=== PATIENT | male | born 1970 | race Caucasian/White ===

== ENCOUNTER 2019-10-04 07:58 | Inpatient (IN) | payer MEDICAID ==
[~2019-10-04] VITALS: Ht 170.2 cm; Wt 83.2 kg
--- NOTE | 2019-10-04 08:06 | NUR ---
PT AMBULATED TO THE ROOM W/ A STEADY GAIT.
--- NOTE | 2019-10-04 08:22 | NUR ---
THIS IS A 49 YO M W/ C/O CONSISTENT FEVERS AND PRODUCTIVE COUGH SINCE LAST SATURDAY. PRESCRIBED TAMIFLU, REPORT GI UPSET SO DID NOT TAKE FULL COURSE. RESP EVEN AND UNLABORED. NADN. VS WDL. PT RESTING ON GURNEY W/ CALL LIGHT IN REACH AWAITING ED EVAL. FAMILY AT BEDSIDE.
[2019-10-04] MEDS ORDERED: SODIUM CHLORIDE 0.9% 1,000ML IVBOLUS ONE (09:00)
--- NOTE | 2019-10-04 09:11 | NUR ---
PT TO RAD.
[2019-10-04 09:17] LABS: BASOPHILS # (AUTO) 0.02 x10^3/uL (0-0.1); BASOPHILS % (AUTO) 0 % (0-1); EOSINOPHILS # (AUTO) 0.16 x10^3/uL (0-0.4); EOSINOPHILS % (AUTO) 1 % (1-7); LYMPHOCYTES # (AUTO) 1.52 x10^3/uL (1-3.4); LYMPHOCYTES % (AUTO) 11 % (22-44); MD NO; MEAN CORPUSCULAR HEMOGLOBIN 30.4 pg (27.5-34.5); MEAN CORPUSCULAR HGB CONC 33.7 g/dL (33.2-36.2); MEAN CORPUSCULAR VOLUME 90.4 fL (81-97); MEAN PLATELET VOLUME 6.9 fL (7.4-10.4); MONOCYTES # (AUTO) 1.33 x10^3/uL (0.2-0.8); MONOCYTES % (AUTO) 10 % (2-9); NEUTROPHILS # (AUTO) 10.66 x10^3/uL (1.8-6.8); NEUTROPHILS % (AUTO) 78 % (42-75); PLATELET COUNT 446 x10^3/uL (130-400); RED BLOOD COUNT 4.16 x10^6/uL (4.38-5.82); RED CELL DISTRIBUTION WIDTH 13.7 % (9.4-14.8)
[2019-10-04 09:18] LABS: ALBUMIN 2.4 g/dL (3.4-5.0); ANION GAP 6 mmol/L (5-15); CHLORIDE 104 mmol/L (98-107); CREATININE 0.77 mg/dL (0.7-1.3)
[2019-10-04] MEDS ORDERED: KETOROLAC 30 MG/1 ML IM ONE (09:30)
[2019-10-04] MEDS ORDERED: AZITHROMYCIN 500 MG in SODIUM CHLORIDE 0.9% 250 ML IV ONE (09:30)
[2019-10-04] MEDS ORDERED: CEFTRIAXONE PMX 1GM/50ML 50 ML IV ONE (09:30)
--- NOTE | 2019-10-04 09:31 | NUR ---
22G IV STARTED IN RYAN. UNABLE TO DRAW 2ND SET OF BLOOD CULTURES.
[2019-10-04] MEDS ORDERED: ACET650S21 PO (09:36)
[2019-10-04] MEDS ORDERED: CYAN-10 PO (09:38)
[2019-10-04] MEDS ORDERED: ASCO-254 PO (09:38)
[2019-10-04] MEDS ORDERED: POTASSIUM CHLORIDE 20 MEQ TAB.ER.PRT ONE (09:50)
--- NOTE | 2019-10-04 09:59 | NUR ---
DISCUSSED WITH DR HUNT, PT WITH DIFFICULT VASCULAR ACCESS. PICC TO BE ORDERED. IV ROCEPHIN TO BE STARTED AFTER 2ND SET OF BLOOD CULTURES DRAWN. CORN MILLER AT BEDSIDE. DISCUSSED WITH PT AND PTS FAMILY PICC LINE INSERTION, UNDERSTANDING VERBALIZED.
[2019-10-04] MEDS ORDERED: POTASSIUM CHLORIDE 20 MEQ TAB.ER.PRT PO ONE (10:00)
[2019-10-04] MEDS ORDERED: POTASSIUM CHLORIDE 40 MEQ in SODIUM CHLORIDE 0.9% 500 ML IV ONE (10:00)
[2019-10-04] MEDS ORDERED: MAGNESIUM SULFATE 1 GM/2 ML IVPush ONE (10:00)
--- NOTE | 2019-10-04 10:00 | NUR ---
PRADIP BENTLEY FROM PHARMACY
[2019-10-04] MEDS ORDERED: CEFTRIAXONE PMX 1GM/50ML 50 ML ONE (10:03)
--- NOTE | 2019-10-04 10:39 | NUR ---
PT TO IR.
[2019-10-04] MEDS ORDERED: hydrALAzine 20 MG/ML, 1ML IVPush PRN (12:00)
[2019-10-04] MEDS ORDERED: ONDANSETRON 2MG/ML, 2ML IVPush PRN (12:00)
[2019-10-04] MEDS: NICOTINE 21 MG/24 HR PATCH.TD24 TD SCH (12:00)
[2019-10-04] MEDS: CEFTRIAXONE PMX 1GM/50ML 50 ML IV SCH (12:00)
[2019-10-04] MEDS ORDERED: ACETAMINOPHEN 325 MG TABLET ONE (13:03)
[2019-10-04] MEDS ORDERED: NICOTINE 21 MG/24 HR PATCH.TD24 ONE (13:03)
[2019-10-04] MEDS ORDERED: ENOXAPARIN 40 MG/0.4 ML ONE (13:03)
[2019-10-04] MEDS ORDERED: methylPREDNISolone SOD SUCC 40 MG/ML ONE (13:03)
--- NOTE | 2019-10-04 13:10 | NUR ---
MED [facility] FROM PHARMACY.
[2019-10-04] MEDS: ACETAMINOPHEN 325 MG TABLET PO PRN (13:11)
[2019-10-04] MEDS: ENOXAPARIN 40 MG/0.4 ML SQ SCH (13:12)
[2019-10-04] MEDS: methylPREDNISolone SOD SUCC 40 MG/ML IV SCH (13:14)
--- NOTE | 2019-10-04 13:34 | NUR ---
PT SLEEPING ON GURNEY. CHEST RISE AND FALL OBSERVED. CALL LIGHT IN REACH.
[2019-10-04] MEDS: DOXYCYCLINE 100 MG in DEXTROSE 5% 250 ML IV SCH (13:52)
--- NOTE | 2019-10-04 13:59 | NUR ---
PT MOSTLY SLEEPING, AROUSES TO NAME. SR-ST WITH EPISODES OF BIGEMINY NOTED. NS WITH KCL INFUSING ORDERED. NS BOLUS CONTS TO INFUSE WITHOUT REDNESS/SWELLING NOTED. IV DOXYCYCLINE STARTED ORDERED. PT FLUSHED APPEARING
--- NOTE | 2019-10-04 14:10 | NUR ---
MEAL TRAY REQUESTED FROM DIETARY
--- NOTE | 2019-10-04 14:32 | NUR ---
REPORT GIVEN TO [facility]. PT READY FOR TRANSPORT. ABX STILL INFUSING AT TIME OF TRANSFER.
[2019-10-04 15:21] VITALS: BP 111/82
[2019-10-04] MEDS: SODIUM CHLORIDE 0.9% 1,000 ML IV SCH (15:43)
[2019-10-04 19:10] VITALS: BP 129/81
[2019-10-05] MEDS: DOXYCYCLINE 100 MG in DEXTROSE 5% 250 ML IV SCH ×2 (01:33→13:59)
[2019-10-05] MEDS: SODIUM CHLORIDE 0.9% 1,000 ML IV SCH (01:34)
[2019-10-05 01:42] VITALS: BP 112/75
[2019-10-05 05:19] LABS: BASOPHILS # (AUTO) 0.02 x10^3/uL (0-0.1); BASOPHILS % (AUTO) 0 % (0-1); EOSINOPHILS % (AUTO) 0 % (1-7); LYMPHOCYTES # (AUTO) 1.15 x10^3/uL (1-3.4); LYMPHOCYTES % (AUTO) 10 % (22-44); MD NO; MEAN CORPUSCULAR HEMOGLOBIN 30.6 pg (27.5-34.5); MEAN CORPUSCULAR VOLUME 92.6 fL (81-97); MEAN PLATELET VOLUME 6.9 fL (7.4-10.4); MONOCYTES # (AUTO) 0.95 x10^3/uL (0.2-0.8); MONOCYTES % (AUTO) 9 % (2-9); NEUTROPHILS # (AUTO) 8.94 x10^3/uL (1.8-6.8); NEUTROPHILS % (AUTO) 81 % (42-75); PLATELET COUNT 419 x10^3/uL (130-400); RED BLOOD COUNT 3.98 x10^6/uL (4.38-5.82); RED CELL DISTRIBUTION WIDTH 13.9 % (9.4-14.8)
[2019-10-05 05:30] LABS: ANION GAP 3 mmol/L (5-15); CALCIUM 8.1 mg/dL (8.5-10.1); CHLORIDE 112 mmol/L (98-107)
[2019-10-05 05:32] LABS: CREATININE 0.54 mg/dL (0.7-1.3)
[2019-10-05] MEDS ORDERED: POTASSIUM CHLORIDE 40 MEQ in SODIUM CHLORIDE 0.9% 500 ML IV ONE (07:00)
[2019-10-05] MEDS ORDERED: POTASSIUM CHLORIDE 40 MEQ in SODIUM CHLORIDE 0.9% 100 ML IV ONE (07:00)
[2019-10-05 07:56] VITALS: BP 126/80
[2019-10-05] MEDS: methylPREDNISolone SOD SUCC 40 MG/ML IV SCH (08:49)
[2019-10-05] MEDS: CEFTRIAXONE PMX 1GM/50ML 50 ML IV SCH (10:25)
[2019-10-05] MEDS: NICOTINE 21 MG/24 HR PATCH.TD24 TD SCH (12:00)
[2019-10-05 13:45] VITALS: BP 130/82
[2019-10-05] MEDS: ENOXAPARIN 40 MG/0.4 ML SQ SCH (13:50)
[2019-10-05 21:26] VITALS: BP 154/74
[2019-10-05] MEDS ORDERED: TEMAZEPAM 15 MG CAPSULE PO PRN (22:30)
[2019-10-06 01:36] VITALS: BP 135/80
[2019-10-06] MEDS: DOXYCYCLINE 100 MG in DEXTROSE 5% 250 ML IV SCH ×2 (02:10→14:52)
[2019-10-06 08:15] VITALS: BP 145/76
[2019-10-06] MEDS: methylPREDNISolone SOD SUCC 40 MG/ML IV SCH (08:31)
[2019-10-06] MEDS: NICOTINE 21 MG/24 HR PATCH.TD24 TD SCH (11:43)
[2019-10-06] MEDS: CEFTRIAXONE PMX 1GM/50ML 50 ML IV SCH (12:02)
[2019-10-06] MEDS: ENOXAPARIN 40 MG/0.4 ML SQ SCH (13:26)
[2019-10-06 13:43] VITALS: BP 139/83
[2019-10-06 15:38] LABS: BASOPHILS # (AUTO) 0.02 x10^3/uL (0-0.1); BASOPHILS % (AUTO) 0 % (0-1); EOSINOPHILS # (AUTO) 0.01 x10^3/uL (0-0.4); EOSINOPHILS % (AUTO) 0 % (1-7); LYMPHOCYTES # (AUTO) 0.93 x10^3/uL (1-3.4); LYMPHOCYTES % (AUTO) 7 % (22-44); MD NO; MEAN CORPUSCULAR HEMOGLOBIN 30.2 pg (27.5-34.5); MEAN CORPUSCULAR HGB CONC 32.8 g/dL (33.2-36.2); MEAN CORPUSCULAR VOLUME 91.9 fL (81-97); MEAN PLATELET VOLUME 7.1 fL (7.4-10.4); MONOCYTES # (AUTO) 0.54 x10^3/uL (0.2-0.8); MONOCYTES % (AUTO) 4 % (2-9); NEUTROPHILS # (AUTO) 11.26 x10^3/uL (1.8-6.8); NEUTROPHILS % (AUTO) 88 % (42-75); PLATELET COUNT 544 x10^3/uL (130-400); RED BLOOD COUNT 4.51 x10^6/uL (4.38-5.82); RED CELL DISTRIBUTION WIDTH 14.2 % (9.4-14.8)
[2019-10-06 15:44] LABS: ANION GAP 8 mmol/L (5-15); CALCIUM 8.9 mg/dL (8.5-10.1); CHLORIDE 105 mmol/L (98-107); CREATININE 0.66 mg/dL (0.7-1.3)
[2019-10-06] MEDS ORDERED: methylPREDNISolone SOD SUCC 40 MG/ML IV SCH (16:00)
[2019-10-06] MEDS ORDERED: POTASSIUM CHLORIDE 20 MEQ TAB.ER.PRT PO ONE (16:30)
[2019-10-06] MEDS ORDERED: CATHFLO-ALTEPLASE 2 MG/2 ML CATHFLUSH ONE ×2 (17:00→18:30)
[2019-10-06 20:12] VITALS: BP 129/70
[2019-10-06] MEDS: ACETAMINOPHEN 325 MG TABLET PO PRN (22:43)
[2019-10-07 02:24] VITALS: BP 124/74
[2019-10-07] MEDS: DOXYCYCLINE 100 MG in DEXTROSE 5% 250 ML IV SCH ×2 (02:26→15:17)
[2019-10-07 07:17] VITALS: BP 129/81
[2019-10-07 08:38] LABS: ANION GAP 5 mmol/L (5-15); CALCIUM 8.1 mg/dL (8.5-10.1); CHLORIDE 108 mmol/L (98-107); CREATININE 0.55 mg/dL (0.7-1.3)
[2019-10-07 08:43] LABS: BASOPHILS # (AUTO) 0.05 x10^3/uL (0-0.1); BASOPHILS % (AUTO) 1 % (0-1); EOSINOPHILS # (AUTO) 0.06 x10^3/uL (0-0.4); EOSINOPHILS % (AUTO) 1 % (1-7); LYMPHOCYTES # (AUTO) 2.11 x10^3/uL (1-3.4); LYMPHOCYTES % (AUTO) 21 % (22-44); MD NO; MEAN CORPUSCULAR HEMOGLOBIN 30.6 pg (27.5-34.5); MEAN CORPUSCULAR HGB CONC 33.4 g/dL (33.2-36.2); MEAN CORPUSCULAR VOLUME 91.8 fL (81-97); MONOCYTES # (AUTO) 0.69 x10^3/uL (0.2-0.8); MONOCYTES % (AUTO) 7 % (2-9); NEUTROPHILS # (AUTO) 7.21 x10^3/uL (1.8-6.8); NEUTROPHILS % (AUTO) 71 % (42-75); PLATELET COUNT 496 x10^3/uL (130-400); RED BLOOD COUNT 4.25 x10^6/uL (4.38-5.82); RED CELL DISTRIBUTION WIDTH 13.7 % (9.4-14.8)
[2019-10-07] MEDS ORDERED: methylPREDNISolone SOD SUCC 40 MG/ML IV SCH (09:00)
[2019-10-07] MEDS ORDERED: POTASSIUM CHLORIDE 20 MEQ TAB.ER.PRT PO ONE ×2 (10:00→12:00)
[2019-10-07] MEDS ORDERED: POTASSIUM CHLORIDE 40 MEQ in SODIUM CHLORIDE 0.9% 100 ML IV ONE (10:00)
[2019-10-07] MEDS ORDERED: DOXY100C2 PO (11:24)
[2019-10-07] MEDS ORDERED: ALBU18HF INH (11:24)
[2019-10-07] MEDS ORDERED: METH4TAB6 PO (11:24)
[2019-10-07] MEDS ORDERED: CEFD300C37 PO (11:24)
[2019-10-07] MEDS ORDERED: TIOT18CA INH (11:24)
[2019-10-07] MEDS: NICOTINE 21 MG/24 HR PATCH.TD24 TD SCH (11:40)
[2019-10-07] MEDS: CEFTRIAXONE PMX 1GM/50ML 50 ML IV SCH (11:40)
[2019-10-07 12:59] VITALS: BP 114/71
[2019-10-07] MEDS: ENOXAPARIN 40 MG/0.4 ML SQ SCH (13:00)
[2019-10-07] MEDS ORDERED: NICO-487 TD (15:11)
[2019-10-07] MEDS ORDERED: LACT1CAP11 PO (15:11)
== END 2019-10-07 18:12 | disposition home or self-care (01) | DRG 871 ==
LOC: ED 08:43 → EDIP 09:59 → SUATTDRO 10:08 → 4WST 14:58
PROVIDERS: ADMIT Hospitalist; ATTEND Hospitalist
PROC: 02HV33Z Insertion of Infusion Device into Superior Vena Cava, Percutaneous Approach (ICD-10-PCS; principal; 2019-10-04)
PROC: B5181ZA Fluoroscopy of Superior Vena Cava using Low Osmolar Contrast, Guidance (ICD-10-PCS; 2019-10-04)
PROC: B548ZZA Ultrasonography of Superior Vena Cava, Guidance (ICD-10-PCS; 2019-10-04)
DX: A41.89 Other specified sepsis (principal); J15.9 Unspecified bacterial pneumonia; J11.08 Influenza due to unidentified influenza virus with specified pneumonia; J44.0 Chronic obstructive pulmonary disease with (acute) lower respiratory infection; J44.1 Chronic obstructive pulmonary disease with (acute) exacerbation; B97.89 Other viral agents as the cause of diseases classified elsewhere; E87.6 Hypokalemia; F17.210 Nicotine dependence, cigarettes, uncomplicated; K40.20 Bilateral inguinal hernia, without obstruction or gangrene, not specified as recurrent; Z87.442 Personal history of urinary calculi
CPT/HCPCS: 36415; 36573; 71046; 80048; 82040; 83605; 84145; 85025; 87040; 93005; 96360; 96361; 99291; G0378; J0456; J0696; J1650; J2997; J3475; J3480; J7060; C1751; J2920; J7030; J7040; J7050